=== PATIENT | male | born 2005 | race Caucasian/White ===

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

== ENCOUNTER 2024-07-05 17:09 | Emergency (ER) | payer OTHER, SELFPAY ==
--- NOTE | ~2024-07-05 | XR_ITS ---
XR knee RT 3V Ordering provider: Steven Penn MD History: . pt twisted knee at work and felt a pop . Comparison: None. FINDINGS: BONES: No acute fracture or dislocation. JOINT SPACES: Normal. SOFT TISSUES: Normal. IMPRESSION: No acute osseous abnormality right knee. Reviewed, dictated and finalized at location A.
[2024-07-05 17:12] VITALS: BP 135/74; PULSE 89; RESP 16; TEMP 36.7; O2SAT 99
--- OUTSIDE RECORDS SUMMARY | 2024-07-05 17:33 | XMS_ITS | Clinical Summary ---
Author Organization [facility] Address [address] [place] [address] Care Team Providers Care Cyber Systems Administrator Name Role Phone No, Physician Primary Care Provider [phone] Allergies No known active allergies Medications ketorolac (TORADOL) 10 mg tablet Take 1 tablet (10 mg total) by mouth every 6 (six) hours as needed for pain 20 tablet 12/29/2023 Active amoxicillin-clav ulanate (AUGMENTIN) 875-125 mg per tablet Take 1 tablet by mouth every 12 (twelve) hours 14 tablet 12/29/2023 Active amoxicillin-clav ulanate (AUGMENTIN) 875-125 mg per tablet Take 1 tablet by mouth every 12 (twelve) hours 14 tablet 05/22/2024 Active chlorhexidine (PERIDEX) 0.12 % oral rinse Apply 15 mL to the mouth or throat 2 (two) times a day 120 mL 05/22/2024 Active lidocaine viscous (XYLOCAINE) 2 % solutionIndicati ons:Mouth Irritation Apply 10 mL to the mouth or throat 3 (three) times a day as needed (for mouth/denta l pain) 300 mL 05/22/2024 Active Encounters Date Type Department Care Team Description 05/23/[address] [address] Zarina Hua RN 05/22/2024 8:33 AM CDT - 05/22/2024 8:38 AM CDT Emergency [address] [address] Pain due to dental caries (Primary Dx); Toothache Discharge Disposition: Discharge to home or self care 05/22/2024 2:21 AM CDT - 05/22/2024 2:22 [place] [address] Discharge Disposition: Left without being seen from Last 3 Months Social History Tobacco Use Types Packs/Day Years Used Date Smoking Tobacco: Never Assessed Personal Safety Answer Date Recorded Have you ever been in or are you currently in a harmful physical or emotional relationship or is someone making you feel afraid or unsafe? Denies 05/21/2024 Sex and Gender Information Value Date Recorded Sex Assigned at Not on file Legal Sex Male 7:31 PM [employer] Gender Identity Not on file Sexual Orientation Not on file Last Filed Vital Signs Vital Sign Reading Time Taken Comments Blood Pressure 141/81 05/22/2024 8:05 AM CDT Pulse 56 05/22/2024 8:05 AM CDT Temperature 36.7 C (98 F) 05/22/2024 8:28 AM CDT Respiratory Rate 17 05/22/2024 8:05 AM CDT Oxygen Saturation 100% 05/22/2024 8:05 AM CDT Inhaled Oxygen Concentration - - Weight 90.7 kg (200 lb) 05/22/2024 7:03 AM CDT Height 180.3 cm (5' 11 ) 05/21/2024 9:15 PM CDT Body Mass Index 27.89 05/21/2024 9:15 PM CDT Plan of Treatment Health Maintenance Due Date Last Done Comments Depression Screening 2004 Hepatitis C Screening 2004 Meningococcal B Vaccine (1 o f 2 - Standard) 2020 Regular Well Visit/Exam 18-64 02/08/2022 HPV Vaccines (3 - Male 3-dos e series) 03/22/2023 12/28/2022, 01/22/2020 Influenza Vaccine (#1) 2023 01/22/2020, 2011 DTaP/Tdap/Td Vaccine (7 - Td or Tdap) 09/01/2026 09/01/2016, 10/16/2008, 06/12/2005, Additional history exists Hepatitis B Screening Completed 2004 , 2004, 2004 Pneumococcal vaccine <65 Completed 005, 2004, 2004, Additional history exists Varicella Vaccines Completed 09/01/2016, 06/12/2005 Meningococcal Vaccine Completed 12/28/2022, 017 Insurance [employer] [facility] Care Teams Cyber Systems Administrator Relationship Specialty Start Date End Date No, Physician PCP - General 12/29/23
--- OUTSIDE RECORDS SUMMARY | 2024-07-05 17:33 | XMS_ITS | Referral Summary ---
Author Organization [facility] Address [address] [place] [id number] Care Team Providers Care Reporting Coordinator Name Role Phone No, Physician Primary Care Provider [phone] Encounters Date Type Department Care Team Description 05/23/[address] [address] Zarina Hua RN 05/22/2024 8:33 AM CDT - 05/22/2024 8:38 AM CDT Emergency [address] [address] Pain due to dental caries (Primary Dx); Toothache Discharge Disposition: Discharge to home or self care 05/22/2024 2:21 AM CDT - 05/22/2024 2:22 AM T Emergency [address] [address] Discharge Disposition: Left without being seen from Last 3 Months Allergies No known active allergies Medications ketorolac [...] mouth/denta l pain) 300 mL 05/22/2024 Active Social History Tobacco Use Types Packs/Day Years Used Date Smoking Tobacco: Never Assessed Personal Safety Answer Date Recorded Have you ever been in or are you currently in a harmful physical or emotional relationship or is someone making you feel afraid or unsafe? 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
[2024-07-05] MEDS: KETOROLAC 30 MG/ML VIAL (*BKC) IM (17:56)
--- NOTE | 2024-07-05 18:06 | ED.LOWEXIN ---
HPI - Extremity Injury (Lower) General Chief Complaint: Extremity Injury, Lower Stated Complaint: Injury to right knee Time Seen by Provider: 07/05/24 17:39 History of Present Illness HPI Narrative: 19-year-old otherwise healthy male presenting to the emergency department after feeling a pop in his right knee with now inability to tolerate weight-bearing. 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 Tried putting weight on it but was not able to. Did not fall or injure himself. No significant swelling. No paresthesias. No nausea, vomiting, abdominal pain, back pain, fever or chills. He was otherwise in his normal state of health. Did not take anything for pain prior to arrival. He states he has had similar issues with his left lower extremity in the knee but did not have any orthopedics procedures or evaluations for that in the past. Related Data Allergies Allergy/AdvReac Type Severity Reaction Status Date / Time No Known Allergies Allergy Verified 07/05/24 17:10 Review of Systems Review of Systems: As reviewed above in HPI [facility] Past Medical History Medical History Chondromalacia of left patellofemoral joint Social History Social History Smoking status: Never smoker Exam Narrative: GENERAL: [Well-appearing, well-nourished, and in no acute distress.] HEAD: [Normocephalic, atraumatic.] EYES: [PERRLA and EOMI.] ENT: Nares clear, no rhinorrhea or epistaxis. Mucous membranes moist. NECK: Supple. CHEST: [Clear to auscultation. No respiratory distress.] HEART: [Regular rate and rhythm]. No murmur heard. [Normal peripheral pulses.] ABDOMEN: [Soft, nondistended], [nontender], [No rigidity or guarding] EXTREMITIES: Tenderness to palpation around the right knee and in the inferior patellar region. No laxity with Shirley's or medial/lateral stress testing. Is able to hold extensor mechanism straight. Not able to bear weight secondary to the pain. No popliteal masses. Minimal joint effusion appreciated but no overlying skin changes. No bruising or rash. SKIN: Warm, dry, no rash. NEURO: [No focal deficits]. Alert and oriented [x3.] PSYCH: [Normal mood and affect.] Course Vital Signs Vital signs: Vital Signs Temperature 36.7 C 07/05/24 17:12 Pulse Rate 89 07/05/24 17:12 Respiratory Rate 16 07/05/24 17:12 Blood Pressure 135/74 07/05/24 17:12 Pulse Oximetry 99 07/05/24 17:12 Oxygen Delivery Room Air 07/05/24 17:12 Temperature 36.7 C 07/05/24 17:12 Pulse Rate 89 07/05/24 17:12 Respiratory Rate 16 07/05/24 17:12 Blood Pressure 135/74 07/05/24 17:12 Pulse Oximetry 99 07/05/24 17:12 Oxygen Delivery Room Air 07/05/24 17:12 MDM - Extremity Injury (Lower) MDM Narrative Medical decision making narrative: 19-year-old male presenting after he sustained a right knee injury at work. He was moving sand in her loud pop in his right knee with shooting pains near his patella. Not able to tolerate weight-bearing but is able to hold extensor mechanism and has good mechanics in the knee although limited by pain. Not able to bear weight secondary to pain. No distal neurovascular issues and no overlying skin changes. Suspicion presently is for potential meniscal injury, ligamentous injury such as tear or sprain versus bony abnormality such as occult fracture. X-rays were obtained and he was provided Toradol for analgesia. X-ray showed no acute osseous abnormalities and there appeared to be normal soft tissues without any effusions. Given patient's injury pattern and significant pain he likely has a ligamentous or meniscal injury that is a called. Will place him in a knee immobilizer in provided crutches with assistance for ambulation. He was given referral to Orthopedic surgery and discharge instructions as well as return precautions which she verbalized understanding. Pain medications were sent along with his prescriptions home. Patient comfortable with discharge plan at this time. Medical Records Attestation: I reviewed the patient's medical records. Imaging Data Attestation: I personally reviewed and interpreted this imaging study as follows: My impression: Impressions Knee X-Ray 07/05/24 17:31 IMPRESSION: No acute osseous abnormality right knee. Discharge Plan Discharge Clinical Impression: Acute knee pain Patient Disposition: Home Condition: Stable Instructions: Antibiotic Form, Knee Pain (ED), Knee Immobilizer (ED) Additional Instructions: Your knee x-ray shows no bony problems and your pain could be secondary to a ligamentous sprain or tear but will have to place him in a knee immobilizer and have you follow-up with an orthopedic podiatrist. We will send you home with some pain medications. Maintain the knee immobilizer and crutches for ambulation with weight-bearing as tolerated. Return with any emergent concerns. Patient Language: Guatemalan Prescriptions: New acetaminophen [Tylenol Extra Strength] 500 mg tablet 1,000 mg PO TID PRN (Reason: pain) Qty: 30 0RF ketorolac 10 mg tablet 10 mg PO Q8H PRN (Reason: pain) 5 Days Qty: 20 0RF Rx Instructions: maximum total duration of 5 days from all oral, intranasal, or parenteral formulations lidocaine 5 % adhesive patch,medicated 1 patch topical DAILY Qty: 15 0RF Rx Instructions: leave on most painful area for up to 12 hrs No Action cephalexin 500 mg capsule 500 mg PO Q8H 7 Days Qty: 21 0RF silver sulfadiazine [Silvadene] 1 % cream 1 applic topical DAILY 5 Days Qty: 20 0RF Rx Instructions: apply a 1.5 mm thickness mupirocin 2 % ointment 1 applic topical BID 7 Days Qty: 22 0RF Follow-up/Referrals: PHYSICIAN,CASINO FLOOR WALKER [Primary Care Provider] - Stand Alone Forms: Work/School Release IP Time of Disposition: 18:12
--- OUTSIDE RECORDS SUMMARY | 2024-07-05 18:27 | XMS_ITS | Referral Summary ---
Author Organization [facility] Address [address] [place] [id number] Care Team Providers Care Heat Treat Furnace Operator Name Role Phone No, Physician Primary Care Provider [phone] Encounters Date Type Department Care Team Description 05/23/[address] [address] Zarina Hua RN 05/22/2024 8:33 AM CDT - 05/22/2024 8:38 AM CDT Emergency [address] [address] Pain due to dental caries (Primary Dx); Toothache Discharge Disposition: Discharge to home or self care 05/22/2024 2:21 AM CDT - 05/22/2024 2:22 AM T Emergency [address] [address] Discharge Disposition: Left without being seen from [...] on file 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
--- OUTSIDE RECORDS SUMMARY | 2024-07-05 18:27 | XMS_ITS | Clinical Summary ---
Author Organization [facility] Address [address] [place] [address] Care Team Providers Care Cash Grain Grower Name Role Phone No, Physician Primary Care Provider [phone] Allergies No known active allergies Medications ketorolac [...] Type Department Care Team Description 05/23/[address] [address] Zarina Hua RN 05/22/2024 8:33 AM CDT - 05/22/2024 8:38 AM CDT Emergency [address] [address] Pain due to dental caries (Primary Dx); Toothache Discharge Disposition: Discharge to home or self care 05/22/2024 2:21 AM CDT - 05/22/2024 2:22 [place] [address] Discharge Disposition: Left without being seen from [...] on file 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
== END 2024-07-05 18:30 | disposition home or self-care (01) ==
LOC: ANHED 18:24
PROVIDERS: Emergency Provider Student in an Organized Health Care Education/Training Program
DX: S89.91XA Unspecified injury of right lower leg, initial encounter (principal); X50.0XXA Overexertion from strenuous movement or load, initial encounter
CPT/HCPCS: 73562; 96372; 99283; J1885